=== PATIENT | female | born 1965 | race Caucasian/White ===

== ENCOUNTER → 2017-04-12 | Day surgery (SDC) | payer OTHER ==
[2017-04-10 17:54] LABS: BASOPHILS % 0.3 % (0.0-1.0); EOSINOPHILS # (AUTO) 0.2 (0.0-0.4); HEMATOCRIT 42.6 % (34.2-44.1); HEMOGLOBIN 14.4 g/dL (12.0-16.0); LYMPHOCYTES % 27.9 % (18.0-39.1); MEAN CORPUSCULAR HEMOGLOBIN 30.6 pg (28-32); MEAN CORPUSCULAR HGB CONC 33.8 g/dL (31-35); MEAN CORPUSCULAR VOLUME 90.4 fL (81-99); MONOCYTES # (AUTO) 0.8 (0.2-0.8); MONOCYTES % 7.8 % (4.4-11.3); NEUTROPHILS # (AUTO) 6.6 (2.1-6.9); NEUTROPHILS % 61.7 % (38.7-80.0); PLATELET COUNT 229 x10e3/uL (140-360); RED BLOOD COUNT 4.71 x10e6/uL (3.6-5.1); RED CELL DISTRIBUTION WIDTH 14.3 % (11.7-14.4)
[~2017-04-12] MED LIST: B-COMPLEX TABL0.4 MG PO; BUPIVACAINE HCL 0.5% 10ML MPF VIAL INJ ONE; CHANTIX1 MG PO; CLIMARA1 EAC1 TD; DEXAMETHASONE SOD PHOS INJ 4 MG/ML VIAL ONE; DIOVAN HCT 1601 EACH PO; ESTROGEN TOP; FENTANYL CITRATE/PF 100MCG/2 ML INJ ONE; HYDROCODONE PO; HYDROMORPHONE 1MG/1ML INJ ONE; IBUPROFEN600 MG PO; LEVOFLOXACIN 500MG/D5W 100ML 100 ML IV ONE; LIDOCAINE HCL 2% LOCAL INJ 5 ML SDV VIAL INJ ONE; METOCLOPRAMIDE HCL 10 MG/2ML VIAL ONE; MIDAZOLAM HCL 2 MG/2 ML VIAL ONE; MORPHINE SULFATE 2 MG/ML SYR ONE; NORCO 10-325 T1 EACH PO; ONDANSETRON HCL INJ 2 MG/ML VIAL ONE; PROPOFOL IV EMULSION 10 MG/ML 20 ML VIAL ONE; ROCURONIUM BROMIDE 10 MG/ML 5ML VIAL ONE; SEVOFLURANE INHAL SOLN 250 ML PEN BTL ONE; SOMA350 MG PO; [UNRECOGNIZED DRUG - OTHER] PO
--- OUTSIDE RECORDS SUMMARY | 2017-04-12 05:18 | XMS REPORT | Clinical Summary ---
Author Author [facility] Address Unknown Phone Unavailable Care Team Providers Care Statistical Secretary Name Role Phone Melissa Irizarry MD PCP Allergies Active Allergy Reactions Severity Noted Date Comments Penicillins Hives, Shortness Of High 12/19/2015 Breath Current Medications Prescription Sig. Disp. Refills Start End Date Status Date diclofenac sodium 3 % gel APPLY 3GM (6 INCHES ON 5 11/30/19 Active THE MEASURING CARD) TO 16 THE AFFECTED AREA EVERY 12 HOURS DIRECTED BY THE PHYSICIAN CLIMARA 0.075 mg/24 hr APPLY 1 PATCH TO SKIN 4 11/08/19 Active WEEKLY 16 HYDROcodone-acetaminophen 12/13/19 Active (NORCO 10-325) 10-325 mg 16 per tablet lidocaine (XYLOCAINE) 5 % APPLY 1 TO 2 PUMPS TO THE 5 11/30/19 Active ointment AFFECTED AREA(S) 3 TIMES 16 DAILY NEEDED. tiZANidine (ZANAFLEX) 2 12/13/19 Active MG tablet 16 valsartan-hydrochlorothia Take 1 tablet by mouth 3 10/26/19 Active zide (DIOVAN-HCT) once daily. 16 160-12.5 mg per tablet meloxicam (MOBIC) 15 MG Take 1 tablet (15 mg 30 tablet 0 12/19/19 Active tablet total) by mouth daily. 16 meloxicam (MOBIC) 15 MG Take 1 tablet (15 mg 30 tablet 0 01/16/20 Active tablet total) by mouth daily. 16 Active Problems No known active problems Family History Medical History Relation Name Comments Hypertension Mother Relation Name Status Comments Mother Social History Tobacco Use Types Packs/Day Years Used Date Smoker, Current Status Cigarettes 0.5 Unknown Sex Assigned at Date Recorded Not on file Last Filed Vital Signs Not on file Plan of Treatment Health Maintenance Due Date Last Done Comments PAP SMEAR 11/25/1984 COLONOSCOPY 11/25/2013 INFLUENZA VACCINE 09/18/2016 MAMMOGRAM 09/20/2017 09/21/2015 Results Not on fileafter 04/11/2016 Insurance Payer Benefit Subscriber ID Type Phone Address Plan / Group [facility] xxxxxxxxx HMO/PPO THCARE CHOICE/CHO [place] + [place] [address]
--- NOTE | 2017-04-12 08:11 | Operative Report ---
DATE OF PROCEDURE: April 12, 2017 PREOPERATIVE DIAGNOSIS: Chronic cholecystitis and cholelithiasis. POSTOPERATIVE DIAGNOSIS: Chronic cholecystitis and cholelithiasis. PROCEDURES PERFORMED 1. Diagnostic laparoscopy. 2. Laparoscopic cholecystectomy. 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 ANESTHESIA: General endotracheal. INDICATIONS AND FINDINGS: Patient is a 51-year-old female who has had complaints of right upper quadrant abdominal pain. Workup revealed one large gallstone. At surgery, the patient was found to have gallbladder that was distended containing at least 1 stone. Cystic duct was about 3 mm in diameter. Common bile duct was about 6 mm in diameter. Liver, stomach and lower abdomen all appeared normal. TECHNIQUE: After adequate general endotracheal anesthesia with the patient in the supine position, the abdomen was prepped and draped in sterile fashion with Lance solution. Skin in the umbilicus was infiltrated with 0.5% Marcaine. Incision made in the umbilicus. Abdominal wall was elevated and Veress needle was introduced. Pneumoperitoneum was then created. A 10 mm-trocar and cannula was then passed through the umbilical wound. Laparoscopic camera was introduced. Initial laparoscopy revealed liver, stomach and lower abdomen all appeared normal. A 10-mm trocar and cannula was placed in the epigastrium, and two 5-mm trocars and cannulas placed in the right upper quadrant. These were placed under direct vision. Fundus of the gallbladder was grasped and retracted superiorly. Neck of the gallbladder was grasped retracted laterally. Peritoneum over the neck of the gallbladder was incised. The gallbladder cystic duct junction was dissected free. Cystic artery was also dissected free. The neck of the gallbladder completely dissected free. Cystic artery was divided between Hemoclips close the gallbladder. The cystic duct also divided between Hemoclips with 3 clips being left on the common bile duct side. The gallbladder was dissected free from the liver using scissors and electrocautery. Once it was entirely free, it was placed into an Endopouch and brought out through the epigastric cannula. It contained at least 1 large stone. Gallbladder bed was inspected for hemostasis, which was seen to be adequate. It was irrigated with saline. All fluid aspirated and inspected for hemostasis, which was seen to be adequate. Instruments and cannulas were then removed. Pneumoperitoneum was evacuated. Wounds were then closed. Fascia in the umbilical and epigastric wound closed with 0 Vicryl. Skin to all wounds closed with 4-0 Vicryl in a subcuticular fashion. Dermabond and sterile dressing were applied to each wound. The patient tolerated the procedure well. Estimated blood loss was 10 mL. There were no complications. All counts were correct. Patient was taken to the recovery room in satisfactory condition. Job#: [id number] RI cc:RANJEET AVILES MD
== END | disposition home or self-care (01) ==
LOC: OR 05:15
PROVIDERS: ATTEND Surgery
DX: K80.10 Calculus of gallbladder with chronic cholecystitis without obstruction (principal); K82.8 Other specified diseases of gallbladder; I10 Essential (primary) hypertension; G47.33 Obstructive sleep apnea (adult) (pediatric); E66.01 Morbid (severe) obesity due to excess calories; K58.9 Irritable bowel syndrome, unspecified; F17.210 Nicotine dependence, cigarettes, uncomplicated; Z01.812 Encounter for preprocedural laboratory examination; Z01.810 Encounter for preprocedural cardiovascular examination; Z68.38 Body mass index [BMI] 38.0-38.9, adult
CPT/HCPCS: 36415; 47562; 85025; 88304; 93005; J1170; J1956; J2250; J2270; J2405; J2765; J1100; J2001

== ENCOUNTER 2023-12-25 11:04 | Emergency (ER) | payer OTHER ==
[~2023-12-25] VITALS: Ht 160 cm; Wt 111.1 kg
[~2023-12-25 11:04] MED LIST changes: -BUPIVACAINE HCL 0.5% 10ML MPF VIAL INJ ONE; -DEXAMETHASONE SOD PHOS INJ 4 MG/ML VIAL ONE; -FENTANYL CITRATE/PF 100MCG/2 ML INJ ONE; -HYDROMORPHONE 1MG/1ML INJ ONE; -LEVOFLOXACIN 500MG/D5W 100ML 100 ML IV ONE; -LIDOCAINE HCL 2% LOCAL INJ 5 ML SDV VIAL INJ ONE; -METOCLOPRAMIDE HCL 10 MG/2ML VIAL ONE; -MIDAZOLAM HCL 2 MG/2 ML VIAL ONE; -MORPHINE SULFATE 2 MG/ML SYR ONE; -ONDANSETRON HCL INJ 2 MG/ML VIAL ONE; -PROPOFOL IV EMULSION 10 MG/ML 20 ML VIAL ONE; -ROCURONIUM BROMIDE 10 MG/ML 5ML VIAL ONE; -SEVOFLURANE INHAL SOLN 250 ML PEN BTL ONE
[2023-12-25 11:19] VITALS: TEMP 97.9
[2023-12-25 12:23] LABS: BASOPHILS % 0.3 % (0.0-1.0); EOSINOPHILS # (AUTO) 0.2 (0.0-0.4); EOSINOPHILS % 2.4 % (0.0-6.0); HEMATOCRIT 46.2 % (34.2-44.1); LYMPHOCYTES # (AUTO) 2.7 (1.0-3.2); MEAN CORPUSCULAR HEMOGLOBIN 29.6 pg (28-32); MEAN CORPUSCULAR HGB CONC 32.5 g/dL (31-35); MEAN CORPUSCULAR VOLUME 91.3 fL (81-99); MONOCYTES # (AUTO) 0.6 (0.2-0.8); MONOCYTES % 6.3 % (4.4-11.3); NEUTROPHILS # (AUTO) 6.1 (2.1-6.9); NEUTROPHILS % 62.7 % (38.7-80.0); PLATELET COUNT 263 x10e3/uL (140-360); RED BLOOD COUNT 5.06 x10e6/uL (3.6-5.1); WHITE BLOOD COUNT 9.68 x10e3/uL (4.8-10.8)
[2023-12-25] MEDS: SODIUM CHLORIDE 0.9% 1000ML 1,000 ML IV STA (12:27)
[2023-12-25] MEDS: ACETAMINOPHEN 325 MG TAB PO ONE (12:28)
[2023-12-25 12:41] LABS: INR 0.84
[2023-12-25 12:42] LABS: PARTIAL THROMBOPLASTIN TIME 26.8 seconds (23.8-35.5)
[2023-12-25 12:51] LABS: ALBUMIN 4.1 g/dL (3.5-5.0); ALBUMIN/GLOBULIN RATIO 1.1 (0.8-2.0); BILIRUBIN,TOTAL 0.4 mg/dL (0.2-1.2); CREATININE, SERUM 0.75 mg/dL (0.57-1.11); MAGNESIUM 1.9 MG/DL (1.3-2.1); TOTAL PROTEIN 7.7 g/dL (6.5-8.1)
[2023-12-25 12:58] LABS: TROPONIN I 0.01 ng/mL (0-0.300)
[2023-12-25] MEDS ORDERED: VALTREX1000 MG PO (14:49)
[2023-12-25] MEDS ORDERED: PREDNISONE20 MG PO (14:49)
[2023-12-25 15:00] VITALS: BP 130/70; TEMP 98.4
[2023-12-25 15:19] VITALS: PULSE 68; RESP 21
[2023-12-25 15:34] VITALS: PULSE 73; RESP 22; O2SAT 97
== END 2023-12-25 15:40 | disposition home or self-care (01) ==
LOC: ER 11:13
DX: G51.0 Bell's palsy (principal); I10 Essential (primary) hypertension; F17.210 Nicotine dependence, cigarettes, uncomplicated
CPT/HCPCS: 36415; 70450; 70544; 70551; 71045; 80053; 82550; 82948; 83735; 84484; 85025; 85610; 85730; 93005; 99284; J7030